=== PATIENT | female | born 1960 | race Caucasian/White ===

== ENCOUNTER 2016-03-13 14:22 | Emergency (ER) | payer OTHER ==
[~2016-03-13] VITALS: Wt 95.0 kg
[~2016-03-13 14:22] MED LIST: ACET500C5 PO; ASP81 PO; BIOT800T PO; BISM-34 PO; CIPR500T4 PO; HYDR-3720 PO; HYDR25TA6 PO; IBUP-1542 PO; IBUP800T25 PO; OMEP40CA6 PO; PHEN-537 PO
[2016-03-13] MEDS ORDERED: KETOROLAC 15 MG INJ IV STA (15:33)
[2016-03-13] MEDS ORDERED: ONDANSETRON 4 MG INJ IV STA (15:33)
[2016-03-13] MEDS ORDERED: SOD CHLORIDE 0.9% 1,000 ML IV STA (15:33)
[2016-03-13 15:46] LABS: ADD UMIC YES; BASOPHILS % 0.4 % (0.0-2.0); EOSINOPHILS # 0.3 10^3/ul (0.0-0.5); EOSINOPHILS % 3.3 % (0.0-7.0); HEMATOCRIT 40.6 % (37.0-47.0); HEMOGLOBIN 13.6 g/dl (12.0-16.0); LYMPHOCYTES # 2.3 10^3/ul (0.8-2.9); LYMPHOCYTES % 25.1 % (15.0-51.0); MEAN CORPUSCULAR HEMOGLOBIN 29.8 pg (29.0-33.0); MEAN CORPUSCULAR HGB CONC 33.4 g/dl (32.0-37.0); MEAN CORPUSCULAR VOLUME 89.2 fl (82.0-101.0); MEAN PLATELET VOLUME 8.3 fl (7.4-10.4); MONOCYTE # 0.5 10^3/ul (0.3-0.9); MONOCYTES % 5.9 % (0.0-11.0); NEUTROPHIL # 5.9 10^3/ul (1.6-7.5); NEUTROPHILS % 65.3 % (39.0-77.0); PLATELET COUNT 276 10^3/UL (140-440); RED BLOOD COUNT 4.55 10^6/ul (4.20-5.40); RED CELL DISTRIBUTION WIDTH 12.9 % (11.5-14.5); URINE BILIRUBIN (Dip) NEGATIVE (NEGATIVE); URINE BLOOD (Dip) NEGATIVE (NEGATIVE); URINE COLOR LT. YELLOW (YELLOW); URINE GLUCOSE (Dip) NEGATIVE (NEGATIVE); URINE KETONES (Dip) NEGATIVE (NEGATIVE); URINE LEUKOCYTE ESTERASE (Dip) TRACE (NEGATIVE); URINE NITRITE (Dip) NEGATIVE (NEGATIVE); URINE TOTAL PROTEIN (Dip) NEGATIVE (NEGATIVE); URINE UROBILINOGEN (Dip) 0.2 E.U./dL (0.1-1.0)
[2016-03-13 15:48] LABS: CONDITION 1
--- NOTE | 2016-03-13 15:54 | RADRPT ---
PROCEDURE: Chest x-ray CLINICAL INDICATION: Abdominal pain TECHNIQUE: Chest single view COMPARISON: None FINDINGS: The heart is normal in size. The pulmonary vessels are normal in caliber. The lungs are clear. Th e costophrenic angles are sharp. The visualized bony thorax is unremarkable. IMPRESSION: No acute cardiopulmonary disease. RPTAT: HH .Carl Stanford MD, Date Time Electronically viewed and signed by .Carl Stanford MD, MD on 03/13/2016 15:54 .W/
[2016-03-13 15:55] LABS: CHLORIDE 103 mmol/L (97-110); POTASSIUM 3.8 mmol/L (3.5-5.1); SODIUM 144 mmol/L (135-144)
[2016-03-13 15:57] LABS: ANION GAP 16 (8-16); BILIRUBIN,INDIRECT 0.4 mg/dl (0-1.1); BILIRUBIN,TOTAL 0.4 mg/dl (0.2-1.3); CARBON DIOXIDE 29 mmol/L (21-31); CREATININE 0.59 mg/dl (0.44-1.00)
[2016-03-13 15:58] LABS: ALANINE AMINOTRANSFERASE 32 IU/L (13-69); ALBUMIN/GLOBULIN RATIO 1.05; ALKALINE PHOSPHATASE 142 IU/L (42-121); ASPARTATE AMINO TRANSFERASE 38 IU/L (15-46); BLOOD UREA NITROGEN 9 mg/dl (7-20); CALCIUM 8.8 mg/dl (8.4-10.2); GLUCOSE 131 mg/dl (70-220); TOTAL PROTEIN 7.8 g/dl (6.1-8.1)
[2016-03-13] MEDS ORDERED: LORAZEPAM 0.5 MG TAB PO ONE (16:00)
[2016-03-13 16:08] LABS: URINE RBCS NONE SEEN /HPF (0)
[2016-03-13 16:09] LABS: BACTERIA,URINE MODERATE; SQUAMOUS EPITHELIAL CELL,UR MODERATE
[2016-03-13 16:13] LABS: TROPONIN-I < 0.012 ng/ml (0.00-0.12)
[2016-03-13] MEDS ORDERED: CEPHALEXIN 500 MG CAP PO ONE (16:30)
[2016-03-13] MEDS ORDERED: CEPH-443 PO (16:34)
[2016-03-13] MEDS ORDERED: IBUP-1542 PO (16:34)
[2016-03-13] MEDS ORDERED: ALPR0.5T PO (16:34)
--- NOTE | 2016-03-13 16:36 | ERD ---
ER Documentation Chief Complaint Date/Time DATE: 03/13/16 TIME: 16:35 Chief Complaint LEFT SIDE WEAKNESS FOR 3 DAYS. WITH NO SPEECH DEFICIT. NO NEURO DEF HPI 55-year-old woman with multiple complaints including right facial paresthesias and full body paresthesias generalized weakness and dizziness, sharp nonexertional nonradiating chest pain. She has had a headache as well global in nature gradual onset. She has had similar episodes in the past. She denies fevers or chills, no abdominal pain, no shortness of breath. She has had no weakness in her arms or legs, no slurred speech, no trauma. ROS All systems reviewed and are negative except as per history of present illness. Medications Home Meds Active Scripts Ibuprofen* (Motrin*) 600 Mg Tab, 600 MG PO Q8 for PAIN AND/OR INFLAMMATION, #30 TAB Prov:BOB BARROSO MD 03/13/16 Alprazolam* (Xanax*) 0.5 Mg Tab, 0.5 MG PO TID for anxie, #12 TAB Prov:BOB BARROSO MD 03/13/16 Cephalexin* (Keflex*) 500 Mg Capsule, 500 MG PO TID for 7 Days, CAP Prov:BOB BARROSO MD 03/13/16 Discontinued Reported Medications Aspirin (Aspirin) 81 Mg Chew, 81 MG PO DAILY, TAB.CHEW 11/07/13 Biotin (Biotin) 800 Mcg Tablet, 500 MCG PO DAILY 11/07/13 Ibuprofen* (Ibuprofen*) 600 Mg Tablet, 600 MG PO BID, TAB 11/07/13 Hydrochlorothiazide (Hydrochlorothiazide) 25 Mg Tablet, 25 MG PO DAILY, TAB 11/07/13 Omeprazole* (Omeprazole*) 40 Mg Capsule.dr, 40 MG PO DAILY, CAP 11/07/13 Discontinued Scripts Bismuth Subsalicylate* (Bismuth Subsalicylate*) 262 Mg/15 Ml Oral.susp, 30 ML PO Q6 Y for DIARRHEA for 5 Days, EA Prov:HAYDEE LOTT PA-C 08/23/15 Ciprofloxacin Hcl* (Ciprofloxacin Hcl*) 500 Mg Tablet, 500 MG PO BID for 7 Days , TAB Prov:HAYDEE LOTT PA-C 08/23/15 Acetaminophen* (Tylophen*) 500 Mg Capsule, 1 CAP PO Q6H Y for PAIN AND OR ELEVATED TEMP, #20 CAP Prov:HAYDEE LOTT PA-C 08/23/15 Ibuprofen* (Motrin*) 600 Mg Tab, 600 MG PO Q6, #20 TAB Prov:HAYDEE LOTT PA-C 16 Acetaminophen* (Tylophen*) 500 Mg Capsule, 2 CAP PO Q8H Y for PAIN AND OR ELEVATED TEMP, #20 CAP Prov:FILIBERTOBART 11/27/14 Phenazopyridine Hcl* (Pyridium*) 100 Mg Tab, 100 MG PO TID, #10 TAB Prov:FILIBERTOBART 11/27/14 Hydrocodone Bit-Acetaminophen* ([place]*) 7.5-325 Tablet, 1 TAB PO Q4H Y for PAIN , #20 TAB Prov:FILIBERTOBART 11/27/14 Ibuprofen* (Motrin*) 800 Mg Tab, 800 MG PO Q6H Y for PAIN AND OR ELEVATED TEMP, #30 TAB Prov:FILIBERTO,BART 11/27/14 Ciprofloxacin Hcl* (Ciprofloxacin Hcl*) 500 Mg Tablet, 500 MG PO BID for 10 Days , TAB Prov:FILIBERTO,BART 11/27/14 Allergies Allergies: Coded Allergies: No Known Allergy (Unverified , 03/13/16) PMhx/Soc Anxiety, hypertension History of Surgery: Yes (SHOULDER SURGERY; UTERINE REMOVAL) Anesthesia Reaction: No Hx Neurological Disorder: No Hx Respiratory Disorders: No Hx Cardiac Disorders: Yes (HTN) Hx Psychiatric Problems: No Hx Miscellaneous Medical Probl: Yes (LIVER PROBLEMS) Hx Alcohol Use: No Hx Substance Use: No Hx Tobacco Use: Yes Smoking Status: Never smoker FmHx Family History: No diabetes Physical Exam Vitals Vital Signs Date Time Temp Pulse Resp B/P Pulse Ox O2 Delivery O2 Flow Rate FiO2 03/13/16 16:46 76 18 126/72 99 Room Air 03/13/16 14:40 98.2 80 20 156/74 98 Physical Exam GENERAL: Well-developed, well-nourished, anxious appearing HEENT: Moist mucous membranes, pink conjunctiva, no cervical spine tenderness or step-off deformities, no goiter, no jaundice or icterus, extraocular movements intact without pain. No submandibular induration, and no pharyngeal erythema NEURO: Alert and oriented 3, cranial nerves II through XII intact bilaterally, pupils equal round reactive to light, no focal deficits or facial asymmetry, sensation intact distally Strength 5/5 in upper and lower extremities bilaterally CARDIAC: Regular rate and rhythm, no murmurs rubs or gallops LUNGS: Clear bilaterally no wheezing crackles or stridor ABDOMEN: Soft nontender, no guarding, no rigidity, no rebound, no psoas sign no obturator sign. Normoactive bowel sounds SKIN: Warm and dry to touch, no abrasions, contusions, or hematomas, no lacerations, no ecchymosis, no target lesions, and without ulcers EXTREMITIES: No clubbing cyanosis or edema, calves are bilaterally symmetrical, no Homans sign, no popliteal cord sign. Distal pulses equal and bilateral PSYCH: Anxious Result Diagram: 03/13/16 1530 03/13/16 1530 Results 24 hrs Laboratory Tests Test 03/13/16 15:30 Alanine Aminotransferase (ALT/SGPT) 32IU/L Albumin 4.0g/dl Albumin/Globulin Ratio 1.05 Alkaline Phosphatase 142IU/L Anion Gap 16 Aspartate Amino Transf (AST/SGOT) 38IU/L Basophils # 0.010^3/ul Basophils % 0.4% Blood Urea Nitrogen 9mg/dl Calcium Level 8.8mg/dl Carbon Dioxide Level 29mmol/L Chloride Level 103mmol/L Creatinine 0.59mg/dl Direct Bilirubin 0.00mg/dl Eosinophils # 0.310^3/ul Eosinophils % 3.3% Globulin 3.80g/dl Glucose Level 131mg/dl Hematocrit 40.6% Hemoglobin 13.6g/dl Indirect Bilirubin 0.4mg/dl Lipase 98U/L Lymphocytes # 2.310^3/ul Lymphocytes % 25.1% Mean Corpuscular Hemoglobin 29.8pg Mean Corpuscular Hemoglobin Concent 33.4g/dl Mean Corpuscular Volume 89.2fl Mean Platelet Volume 8.3fl Monocytes # 0.510^3/ul Monocytes % 5.9% Neutrophils # 5.910^3/ul Neutrophils % 65.3% Nucleated Red Blood Cells # 0.010^3/ul Nucleated Red Blood Cells % 0.0/100WBC Platelet Count 48186^3/UL Potassium Level 3.8mmol/L Red Blood Count 4.5510^6/ul Red Cell Distribution Width 12.9% Sodium Level 144mmol/L Total Bilirubin 0.4mg/dl Total Protein 7.8g/dl Troponin I < 0.012ng/ml Urine Bacteria MODERATE Urine Bilirubin NEGATIVE Urine Clarity SLIGHTLY CLOUDY Urine Color LT. YELLOW Urine Glucose NEGATIVE% Urine Hemoglobin NEGATIVE Urine Ketones NEGATIVE Urine Leukocyte Esterase TRACE Urine Microscopic RBC NONE SEEN/HPF Urine Microscopic WBC 5-10/HPF Urine Nitrite NEGATIVE Urine Specific [place] 1.025 Urine Squamous Epithelial Cells MODERATE Urine Total Protein NEGATIVE Urine Urobilinogen 0.2 E.U./dL Urine pH 6.0 White Blood Count 9.010^3/ul Current Medications Medications (Trade) Dose Ordered Sig/Amberly Route PRN Reason Start Time Stop Time Status Last Admin Dose Admin Sodium Chloride (NS) 1,000 ml @ 1,000 mls/hr Q1H STAT IV 03/13/16 15:33 03/13/16 16:32 DC 03/13/16 15:50 Ondansetron HCl (Zofran Inj) 4 mg ONCE STAT IV 03/13/16 15:33 03/13/16 15:35 DC 03/13/16 15:49 Ketorolac Tromethamine (Toradol) 15 mg ONCE STAT IV 03/13/16 15:33 03/13/16 15:35 DC 03/13/16 15:49 Lorazepam (Ativan) 0.5 mg ONCE ONCE PO 03/13/16 16:00 03/13/16 16:01 DC 03/13/16 15:49 Cephalexin (Keflex) 500 mg ONCE ONCE PO 03/13/16 16:30 03/13/16 16:31 DC 03/13/16 16:20 Procedures/MDM IV line was established patient was placed on surveillance monitor rhythm strip revealed a sinus rhythm at about 70 bpm with upright P and T waves. Patient was afebrile. I administered 1 L normal saline intravenously, Toradol 50 mg IV, Zofran 4 mg IV , lorazepam 0.5 mg p.o. with good response. EKG performed, read by me: 72 bpm, normal sinus rhythm, normal axis, no acute ST segment changes, narrow QRS complex, with good R-wave progression in precordial leads. CBC and electrolytes were normal, liver function tests were normal, troponin was negative. Urine analysis was concerning for early urinary tract infection and given her overall symptoms I elected to treat her here with oral antibiotics and give her a prescription 1 week. Patient received 500 mg cephalexin p.o. 1. Differential diagnoses considered, included but not limited to acute coronary syndrome, pulmonary embolism, aortic dissection, abdominal aortic aneurysm, sepsis, stroke, meningitis, encephalitis, pneumonia, appendicitis, cholecystitis , bowel obstruction, pyelonephritis, nephrolithiasis, cystitis, as well as metabolic, hematologic, and electrolyte abnormalities. As well as abscess, cellulitis, fractures, and dislocations. Patient feels much better at this time, and vital signs are normal, symptoms have improved. I did give strict instructions to return to the ED if symptoms continue or worsen, patient will otherwise follow-up with primary care physician. Patient understood instructions and agreed to plan. Departure Diagnosis: Primary Impression: Paresthesia Additional Impressions: Urinary tract infection Urinary tract infection type: acute cystitis Hematuria presence: without hematuria Qualified Code: N30.00 - Acute cystitis without hematuria Dizziness Anxiety Condition: Good Patient Instructions: Understanding Urinary Tract Infections (UTIs), Dizziness , Unk Cause, Paraesthesias BOB BARROSO MD Mar 13, 2016 16:36
[2016-03-13 16:46] VITALS: BP 126/72; PULSE 76; RESP 18
== END 2016-03-13 16:49 | disposition home or self-care (01) ==
LOC: E/R 14:22
DX: R20.9 Unspecified disturbances of skin sensation (principal); R40.2142 Coma scale, eyes open, spontaneous, at arrival to emergency department; N30.00 Acute cystitis without hematuria; F41.9 Anxiety disorder, unspecified; R40.2252 Coma scale, best verbal response, oriented, at arrival to emergency department; R40.2362 Coma scale, best motor response, obeys commands, at arrival to emergency department; I10 Essential (primary) hypertension; Z79.82 Long term (current) use of aspirin
CPT/HCPCS: 71010; 80053; 81001; 83690; 84484; 85025; 93005; J1885; J2405; J7030; Z7610; 36415; 81003; 96374; 96375

== ENCOUNTER 2016-06-13 17:41 | Emergency (ER) | payer OTHER ==
[~2016-06-13] VITALS: Wt 75.0 kg
[~2016-06-13 17:41] MED LIST changes: -ACET500C5 PO; +ALPR0.5T PO; -ASP81 PO; -BIOT800T PO; -BISM-34 PO; +CEPH-443 PO; -CIPR500T4 PO; -HYDR-3720 PO; -HYDR25TA6 PO; -IBUP800T25 PO; -OMEP40CA6 PO; -PHEN-537 PO
[2016-06-13] MEDS ORDERED: morphine 4 MG/ML VIAL IV STA (20:17)
[2016-06-13] MEDS ORDERED: ONDANSETRON 4 MG INJ IV STA (20:17)
[2016-06-13] MEDS ORDERED: SOD CHLORIDE 0.9% 1,000 ML IV STA (20:17)
[2016-06-13 20:38] LABS: ADD SCAN DIFF NO
[2016-06-13 20:40] LABS: BASOPHIL # 0.1 10^3/ul (0.0-0.1); BASOPHILS % 0.7 % (0.0-2.0); EOSINOPHILS # 0.5 10^3/ul (0.0-0.5); EOSINOPHILS % 4.9 % (0.0-7.0); HEMATOCRIT 39.8 % (37.0-47.0); HEMOGLOBIN 13.2 g/dl (12.0-16.0); LYMPHOCYTES # 1.8 10^3/ul (0.8-2.9); LYMPHOCYTES % 19.1 % (15.0-51.0); MEAN CORPUSCULAR HEMOGLOBIN 30.1 pg (29.0-33.0); MEAN CORPUSCULAR HGB CONC 33.2 g/dl (32.0-37.0); MEAN CORPUSCULAR VOLUME 90.9 fl (82.0-101.0); MEAN PLATELET VOLUME 10.1 fl (7.4-10.4); MONOCYTE # 0.7 10^3/ul (0.3-0.9); MONOCYTES % 7.8 % (0.0-11.0); NEUTROPHIL # 6.1 10^3/ul (1.6-7.5); NEUTROPHILS % 67.2 % (39.0-77.0); PLATELET COUNT 233 10^3/UL (140-415); RED BLOOD COUNT 4.38 10^6/ul (4.20-5.40); RED CELL DISTRIBUTION WIDTH 12.9 % (11.5-14.5); WHITE BLOOD COUNT 9.1 10^3/ul (4.8-10.8)
[2016-06-13 20:42] LABS: ADD UMIC YES; URINE BILIRUBIN (Dip) 1+ (NEGATIVE); URINE BLOOD (Dip) 3+ (NEGATIVE); URINE COLOR RED (YELLOW); URINE GLUCOSE (Dip) NEGATIVE (NEGATIVE); URINE KETONES (Dip) NEGATIVE (NEGATIVE); URINE LEUKOCYTE ESTERASE (Dip) NEGATIVE (NEGATIVE); URINE NITRITE (Dip) NEGATIVE (NEGATIVE); URINE TOTAL PROTEIN (Dip) 2+ (NEGATIVE); URINE UROBILINOGEN (Dip) 0.2 E.U./dL (0.1-1.0)
[2016-06-13 20:49] LABS: CHLORIDE 103 mmol/L (97-110)
[2016-06-13 20:50] LABS: ALBUMIN 4.2 g/dl (3.3-4.9); INR 1.01; PARTIAL THROMBOPLASTIN TIME 28.7 Sec (25.0-35.0); PROTIME 13.3 Sec (12.2-14.2)
[2016-06-13 20:51] LABS: POTASSIUM 3.8 mmol/L (3.5-5.1); SODIUM 140 mmol/L (135-144)
[2016-06-13] MEDS ORDERED: PANT40TA4 PO (20:51)
[2016-06-13] MEDS ORDERED: TRAM-40 PO (20:52)
[2016-06-13] MEDS ORDERED: BUTA1CAP41 PO (20:52)
[2016-06-13 20:53] LABS: ALBUMIN/GLOBULIN RATIO 1.35; ALKALINE PHOSPHATASE 116 IU/L (42-121); AMYLASE 64 U/L (11-123); ANION GAP 15 (8-16); ASPARTATE AMINO TRANSFERASE 35 IU/L (15-46); BILIRUBIN,INDIRECT 0.7 mg/dl (0-1.1); BILIRUBIN,TOTAL 0.7 mg/dl (0.2-1.3); BLOOD UREA NITROGEN 14 mg/dl (7-20); CARBON DIOXIDE 26 mmol/L (21-31); CREATININE 0.69 mg/dl (0.44-1.00); TOTAL PROTEIN 7.3 g/dl (6.1-8.1)
[2016-06-13] MEDS ORDERED: AMO500 PO (20:53)
[2016-06-13 20:54] LABS: ALANINE AMINOTRANSFERASE 38 IU/L (13-69); GLUCOSE 102 mg/dl (70-220)
[2016-06-13 20:55] LABS: ICTOTEST NEGATIVE (NEGATIVE); SQUAMOUS EPITHELIAL CELL,UR OCCASIONAL; URINE RBCS >200 /HPF (0)
[2016-06-13] MEDS ORDERED: DICLOFENAC SODIUM 37.5 MG/ML VIAL IV STA (21:08)
[2016-06-13 21:14] LABS: TROPONIN-I < 0.012 ng/ml (0.00-0.12)
[2016-06-13] MEDS ORDERED: CEFTRIAXONE 1 GM/50 ML (PMX) 50 ML IVPB ONE (21:30)
--- NOTE | 2016-06-13 21:31 | ERD ---
ER Documentation Chief Complaint Date/Time DATE: 06/13/16 TIME: 21:27 Chief Complaint LEFT SIDED FLANK PAIN X 3 DAYS WITH DYSURIA (BART DE LOS SANTOS) HPI This is a very pleasant 55-year-old Trinidadian-speaking female with no past medical history that presents to the emergency department complaining of left flank pain for the past 3 days. The patient indicates that the pain is intermittent but progressively worsened just prior to arrival to 10 out of 10 in intensity and began to radiate to her left lower quadrant. She has been experiencing dysuria frequency and urgency with gross hematuria. Had any similar symptoms in the past. She denies any fever shaking or chills. She has no shortness of breath at rest or exertion. She denies any hemoptysis hematemesis or melanotic stools. She denies any recent travel. She did not take any analgesic medication prior to arrival. She denies any recent remote blunt or penetrating abdominal wall trauma. She has no chest pain or pressure that radiates to the neck arm back or jaw. (BART DE LOS SANTOS) ROS All systems reviewed and are negative except as per history of present illness. (BART DE LOS SANTOS) Medications Home Meds Active Scripts Polyethylene Glycol* (Miralax*) 17 Gm Powd.pack, 17 GM PO DAILY, #7 Prov:TATE HITCHCOCK DO 06/13/16 Hydrocodone/Acetaminophen (Sandwich 5-325 Tablet) 1 Each Tablet, 1 EACH PO Q6 Y for PAIN LEVEL 7-10, #10 TAB Prov:BART DE LOS SANTOS 06/13/16 Ibuprofen* (Ibuprofen*) 800 Mg Tablet, 800 MG PO Q8, #20 TAB Prov:BART DE LOS SANTOS 06/13/16 Cephalexin* (Keflex*) 500 Mg Capsule, 500 MG PO QID for 7 Days, CAP Prov:BART DE LOS SANTOS 06/13/16 Alprazolam* (Xanax*) 0.5 Mg Tab, 0.5 MG PO TID for anxie, #12 TAB Prov:BOB BARROSO MD 03/13/16 Reported Medications Amoxicillin* (Amoxicillin*) 500 Mg Cap, 500 MG PO DAILY, #20 CAP 06/13/16 Tramadol Hcl* (Ultram*) 50 Mg Tablet, 50 MG PO Q6H Y for PAIN, TAB 06/13/16 Gsjhhhxirm-Gokelxpgltwuk-Obhrrxia* (Zebutal*) 50-325-40 Mg Capsule, 1 CAP PO Q6H , CAP 06/13/16 Pantoprazole* (Pantoprazole*) 40 Mg Tablet.dr, 40 MG PO AC BREAKFAST, TAB 06/13/16 Discontinued Scripts Ibuprofen* (Motrin*) 600 Mg Tab, 600 MG PO Q8 for PAIN AND/OR INFLAMMATION, #30 TAB Prov:BOB BARROSO MD 03/13/16 Cephalexin* (Keflex*) 500 Mg Capsule, 500 MG PO TID for 7 Days, CAP Prov:BOB BARROSO MD 03/13/16 Allergies Allergies: Coded Allergies: No Known Allergy (Unverified , 06/13/16) PMhx/Soc History of Surgery: Yes (SHOULDER SURGERY; UTERINE REMOVAL) Anesthesia Reaction: No Hx Neurological Disorder: No Hx Respiratory Disorders: No Hx Cardiac Disorders: Yes (HTN) Hx Psychiatric Problems: No Hx Miscellaneous Medical Probl: Yes (LIVER PROBLEMS) Hx Alcohol Use: No Hx Substance Use: No Hx Tobacco Use: Yes (BART DE LOS SANTOS) Physical Exam Vitals Vital Signs Date Time Temp Pulse Resp B/P Pulse Ox O2 Delivery O2 Flow Rate FiO2 06/13/16 22:50 97.6 74 20 155/82 98 Room Air 06/13/16 20:30 97.8 85 18 157/89 97 Room Air 06/13/16 17:45 98.0 785 18 141/65 99 (GREEN,TATE DO) Physical Exam Constitutional:Well-developed. Well-nourished. Patient appeared to be in a significant amount discomfort unable to find a comfortable position on the stretcher. HEENT:Normocephalic. Atraumatic.Pupils were equal round reactive to light. Moist mucous membranes.No tonsillar exudates. Neck: No nuchal rigidity. No lymphadenopathy. No posterior cervical spine tenderness or step-offs. Respiratory: Not using accessory muscles of respiration.Lungs were clear to auscultation bilaterally. No rhonchi. No rales. No wheezing. Cardiovascular: Regular rate regular rhythm.No murmurs. No rubs were appreciated.S1, S2 normal. Distal pulses are palpable 2+ bilaterally. GI: Abdomen was soft. Left CVA tenderness. Non Distended. No pulsatile abdominal masses or bruits. No rebound. No guarding. Bowel sounds were present and normal. Muscle skeletal: Full range of motion of both the upper and lower extremities bilaterally.Normal muscle tone.No assymetrical calf tenderness or swelling. Skin: No petechia, no purpura. No lesions on the palms or the soles of the feet. No maculopapular rash. NEURO: Patient was alert, awake, orientated x3.No facial droop. Gait observed and normal with no ataxia.Speech had regular rate and rhythm. No focal neurological deficits. (BART DE LOS SANTOS) Result Diagram: 06/13/16202406/13/162024 Results 24 hrs Laboratory Tests Test 06/13/16 20:25 White Blood Count 9.110^3/ul Red Blood Count 4.3810^6/ul Hemoglobin 13.2g/dl Hematocrit 39.8% Mean Corpuscular Volume 90.9fl Mean Corpuscular Hemoglobin 30.1pg Mean Corpuscular Hemoglobin Concent 33.2g/dl Red Cell Distribution Width 12.9% Platelet Count 57611^3/UL Mean Platelet Volume 10.1fl Neutrophils % 67.2% Lymphocytes % 19.1% Monocytes % 7.8% Eosinophils % 4.9% Basophils % 0.7% Nucleated Red Blood Cells % 0.0/100WBC Neutrophils # 6.110^3/ul Lymphocytes # 1.810^3/ul Monocytes # 0.710^3/ul Eosinophils # 0.510^3/ul Basophils # 0.110^3/ul Nucleated Red Blood Cells # 0.010^3/ul Prothrombin Time 13.3Sec Prothrombin Time Ratio 1.0 INR International Normalized Ratio 1.01 Activated Partial Thromboplast Time 28.7Sec Urine Color RED Urine Clarity TURBID Urine pH 6.0 Urine Specific [place] 1.020 Urine Ketones NEGATIVE Urine Nitrite NEGATIVE Urine Bilirubin 1+ Urine Ictotest NEGATIVE Urine Urobilinogen 0.2 E.U./dL Urine Leukocyte Esterase NEGATIVE Urine Microscopic RBC >200/HPF Urine Microscopic WBC 5-10/HPF Urine Squamous Epithelial Cells OCCASIONAL Urine Hemoglobin 3+ Urine Glucose NEGATIVE% Urine Total Protein 2+ Sodium Level 140mmol/L Potassium Level 3.8mmol/L Chloride Level 103mmol/L Carbon Dioxide Level 26mmol/L Anion Gap 15 Blood Urea Nitrogen 14mg/dl Creatinine 0.69mg/dl Glucose Level 102mg/dl Calcium Level 9.0mg/dl Total Bilirubin 0.7mg/dl Direct Bilirubin 0.00mg/dl Indirect Bilirubin 0.7mg/dl Aspartate Amino Transf (AST/SGOT) 35IU/L Alanine Aminotransferase (ALT/SGPT) 38IU/L Alkaline Phosphatase 116IU/L Troponin I < 0.012ng/ml Total Protein 7.3g/dl Albumin 4.2g/dl Globulin 3.10g/dl Albumin/Globulin Ratio 1.35 Amylase Level 64U/L Lipase 183U/L Current Medications Medications (Trade) Dose Ordered Sig/Amberly Route PRN Reason Start Time Stop Time Status Last Admin Dose Admin Sodium Chloride (NS) 1,000 ml @ 1,000 mls/hr Q1H STAT IV 06/13/16 20:17 06/13/16 21:16 DC 06/13/16 20:32 Morphine Sulfate (morphine) 4 mg ONCE STAT IV 06/13/16 20:17 06/13/16 20:19 DC 06/13/16 20:32 Ondansetron HCl (Zofran Inj) 4 mg ONCE STAT IV 06/13/16 20:17 06/13/16 20:19 DC 06/13/16 20:32 Diclofenac Sodium 37.5 mg 37.5 mg ONCE STAT IV 06/13/16 21:08 06/13/16 21:14 DC 06/13/16 21:38 Ceftriaxone Sodium (Rocephin) 50 ml @ 100 mls/hr ONCE ONCE IVPB 06/13/16 21:30 06/13/16 21:59 DC 06/13/16 21:38 (TATE HITCHCOCK DO) Procedures/MDM This patient presented to the emergency department with abdominal pain and was seen and evaluated by myself. My differential diagnosis included but was not limited to abdominal aortic aneurysm, appendicitis, pancreatitis, perforated peptic ulcer, perforated viscus, Boerhaaves syndrome or visceral pain such as diverticulitis, DKA, esophagitis, hepatitis or bowel obstruction. The patient was placed on a lunchroom monitor, continuous pulse oximetry, and IV access was established by nursing staff. The patient was given intravenous morphine dilator checked and Zofran. I obtained a 12-lead EKG tracing to rule out atypical myocardial infarction. 12 Lead EKG tracing ordered and reviewed by myself showed: Normal sinus rhythm of 77 bpm and no arrhythmia. HI interval normal. QRS duration normal. No ST segment elevation No ST segment depression. No changes consistent with acute ischemia. The patient had gross hematuria with a mild amount of pyuria. Therefore the patient was given IV ceftriaxone after urine culture had been obtained. I obtained a CT scan without contrast that did confirm left-sided nephrolithiasis with no evidence of obstructive uropathy. The patient's pain had completely resolved and she did feel comfortable being discharged home. She is given outpatient follow-up with a urologist and discharged home with analgesic pain medication which included Motrin and Sandwich for breakthrough pain with a prescription of Keflex for her mild cystitis The patient was discharged home in fair condition. They were instructed to return to the emergency department at any time if there was any worsening of their condition. The patient stated they would follow up with their PCP in the next 24-48 hours to initiate a suitable medication regimen under the care of their PCP as well as to allow their PCP to monitor any drug reactions. The patient was discharged home with prescriptions after they gave informed consent to the new medication. They were also fully informed by myself on the adverse effects and adverse drug interactions in order to provide adequate safeguards to prevent possible adverse reactions to medications. (BART DE LOS SANTOS) Was signed out the pending CT read on this patient. She has a kidney stone is suspected the stone is 7 x 4 x 3 and is ready passed to the distal ureter with mild hydronephrosis. Also noted on CT is constipation. I am adding MiraLAX to her medication regimen for discharge and printing CAT scan for her instructing her to follow-up with urologist through her primary care doctor.. (TATE HITCHCOCK DO) Departure Diagnosis: Primary Impression: Nephrolithiasis Additional Impression: Urinary tract infection Urinary tract infection type: acute cystitis Hematuria presence: with hematuria Qualified Code: N30.01 - Acute cystitis with hematuria Condition: Fair BART DE LOS SANTOS Jun 13, 2016 21:31 TATE HITCHCOCK DO Jun 13, 2016 23:41
[2016-06-13] MEDS ORDERED: IBUP800T25 PO (21:34)
[2016-06-13] MEDS ORDERED: HYDR-906 PO (21:34)
[2016-06-13] MEDS ORDERED: CEPH-443 PO (21:34)
--- NOTE | 2016-06-13 22:18 | RADRPT ---
PROCEDURE: CT ABDOMEN/PELVIS WITHOUT CONTRAST CLINICAL INDICATION: 55-year-old female with abdominal and left-sided flank pain. TECHNIQUE: The study was performed utilizing a GE [employer] Wrightpeed VCT 64-slice CT scanner. Direct axia l sections were obtained through the abdomen and pelvis without the use of intravenous contrast mate rial. Sagittal and coronal reformations were obtained. One or more of the following dose reduction t echniques were utilized: automated exposure control, adjustment of the mA and/or kV according to pat ient's size or use of iterative reconstruction technique. The images were reviewed on a PACS workst at[employer]. CTD/vol = 21.1 mGy; Total Exam DLP = 1256.4 mGy-cm. COMPARISON: CT abdomen/pelvis November 27, 2014. FINDINGS: There is minimal bibasilar subsegmental atelectasis. There is no evidence for significant pleural e ffusion. The liver has a normal size and contour without focal areas of abnormal density. No intrah epatic nor extrahepatic biliary ductal dilatation is seen. The gallbladder demonstrates no wall thic kening nor pericholecystic fluid. No biliary stones are evident. The pancreas is without areas of ab normal attenuation. The spleen is identified and has a normal size without abnormal density. The ad renal glands are unremarkable. There is a nonobstructing calculus within the right lower pole measur ing approximately 2 x 2 mm. There is mild left-sided hydroureteronephrosis with an obstructing calc ulus in the distal left ureter measuring approximately 7 x 4 x 3 mm. The urinary bladder contains u rine. There is mild retained stool within the ascending colon without obstruction. The appendix is visualized and is without abnormal thickening or surrounding inflammatory reaction. The uterus is not visualized consistent with prior hysterectomy. There is no significant pelvic free fluid. The aortoiliac vessels are without aneurysmal dilatation. Mild degenerative changes are seen within the spine. IMPRESSION: 1. Mild left-sided hydroureteronephrosis with an obstructing distal left ureteral 7 x 4 x 3 mm calc ulus. 2. Punctate nonobstructing right lower pole 2 x 2 mm calculus. 3. Mild retained stool within the ascending colon. 4. No CT evidence for appendicitis. 5. Status post hysterectomy. 6. Mild degenerative changes within the spine. .Uvaldo Quinn MD, MD Date Time Electronically viewed and signed by .Uvaldo Quinn MD, MD on 06/13/2016 22:17 .M/
[2016-06-13 22:50] VITALS: BP 155/82; PULSE 74; RESP 20; TEMP 97.6
[2016-06-13] MEDS ORDERED: POLY17PO6 PO (23:39)
== END 2016-06-13 23:57 | disposition home or self-care (01) ==
LOC: E/R 17:41
DX: N20.0 Calculus of kidney (principal); N30.01 Acute cystitis with hematuria; I10 Essential (primary) hypertension; F17.210 Nicotine dependence, cigarettes, uncomplicated
CPT/HCPCS: 74176; 80053; 81001; 82150; 83690; 84484; 85025; 85610; 85730; 87086; 93005; 96374; 96375; J0696; J2270; J2405; J7030; Z7502; Z7610; 81003

== ENCOUNTER 2016-06-15 01:33 | Emergency (ER) | payer OTHER ==
[~2016-06-15] VITALS: Ht 165.1 cm; Wt 95.0 kg
[~2016-06-15 01:33] MED LIST changes: +AMO500 PO; +BUTA1CAP41 PO; +HYDR-906 PO; -IBUP-1542 PO; +IBUP800T25 PO; +PANT40TA4 PO; +POLY17PO6 PO; +TRAM-40 PO
[2016-06-15 01:48] VITALS: Ht 165.1 cm; Wt 95.0 kg
[2016-06-15] MEDS ORDERED: KETOROLAC 60 MG INJ IM STA (02:43)
[2016-06-15] MEDS ORDERED: ONDANSETRON (ODT) 4 MG TAB ODT STA (02:43)
[2016-06-15] MEDS ORDERED: HYDROCODONE/APAP (10/325) TAB PO ONE (03:00)
[2016-06-15] MEDS ORDERED: PHENAZOPYRIDINE 100 MG TAB PO ONE (03:00)
[2016-06-15 03:03] LABS: URINE BLOOD (Dip) POC 2+ (NEGATIVE)
--- NOTE | 2016-06-15 03:23 | ERD ---
ER Documentation Chief Complaint Date/Time DATE: 06/15/16 TIME: 03:19 Chief Complaint left flank pain radiating to front lower pelvis x 3 days, +hematuria, dysur HPI 55-year-old female presents here in emergency department for quite of left flank pain radiating to the left pelvis, and hematuria, patient has seen in the emergency department yesterday, was diagnosed of kidney stones her laboratory testing and CT scan, patient also mild hydroureteronephrosis with this, patient was not able to fill prescription for pain medications and that she is here today, patient wants relief of pain. Patient denies any new symptoms. Patient denies any fever or chills. Patient denies any nausea or vomiting. Patient described the pain sharp pain, 8/10 scale, not better with anything, worst upon urination. Patient was given prescriptions yesterday and was not able to fill it them. ROS All systems reviewed and are negative except as per history of present illness. Medications Home Meds Active Scripts Polyethylene Glycol* (Miralax*) 17 Gm Powd.pack, 17 GM PO DAILY, #7 Prov:TATE HITCHCOCK DO 06/13/16 Hydrocodone/Acetaminophen ([place] 5-325 Tablet) 1 Each Tablet, 1 EACH PO Q6 Y for PAIN LEVEL 7-10, #10 TAB Prov:BART DE LOS SANTOS 06/13/16 Ibuprofen* (Ibuprofen*) 800 Mg Tablet, 800 MG PO Q8, #20 TAB Prov:BART DE LOS SANTOS 06/13/16 Cephalexin* (Keflex*) 500 Mg Capsule, 500 MG PO QID for 7 Days, CAP Prov:BART DE LOS SANTOS 06/13/16 Alprazolam* (Xanax*) 0.5 Mg Tab, 0.5 MG PO TID for anxie, #12 TAB Prov:BOB BARROSO MD 03/13/16 Reported Medications Amoxicillin* (Amoxicillin*) 500 Mg Cap, 500 MG PO DAILY, #20 CAP 06/13/16 Tramadol Hcl* (Ultram*) 50 Mg Tablet, 50 MG PO Q6H Y for PAIN, TAB 06/13/16 Mamhnmkpkx-Exdyaqmirqnml-Quspmcuf* (Zebutal*) 50-325-40 Mg Capsule, 1 CAP PO Q6H , CAP 06/13/16 Pantoprazole* (Pantoprazole*) 40 Mg Tablet.dr, 40 MG PO AC BREAKFAST, TAB 06/13/16 Discontinued Scripts Ibuprofen* (Motrin*) 600 Mg Tab, 600 MG PO Q8 for PAIN AND/OR INFLAMMATION, #30 TAB Prov:BOB BARROSO MD 03/13/16 Cephalexin* (Keflex*) 500 Mg Capsule, 500 MG PO TID for 7 Days, CAP Prov:BOB BARROSO MD 03/13/16 Allergies Allergies: Coded Allergies: No Known Allergy (Unverified , 06/13/16) PMhx/Soc History of Surgery: Yes (SHOULDER SURGERY; UTERINE REMOVAL) Anesthesia Reaction: No Hx Neurological Disorder: No Hx Respiratory Disorders: No Hx Cardiac Disorders: Yes (HTN) Hx Psychiatric Problems: No Hx Miscellaneous Medical Probl: Yes (LIVER PROBLEMS, kidney stones in past) Hx Alcohol Use: No Hx Substance Use: No Hx Tobacco Use: Yes Smoking Status: Current every day smoker FmHx Family History: No coronary disease, No diabetes, No other Physical Exam Vitals Vital Signs Date Time Temp Pulse Resp B/P Pulse Ox O2 Delivery O2 Flow Rate FiO2 06/15/16 01:48 97.3 78 20 173/84 97 Physical Exam GENERAL: The patient is well developed and appropriate for usual state of health, in no apparent distress. CHEST: Clear to auscultation bilaterally. There are no rales, wheezes or rhonchi. HEART: Regular rate and rhythm. No murmurs, clicks, rubs or gallops. No S3 or S4. ABDOMEN: Soft, nontender and nondistended. Good bowel sounds. No rebound or guarding. No gross peritonitis. No gross organomegaly or masses. No Villa sign or McBurney point tenderness. BACK: No midline or flank tenderness. Left CVA tenderness. EXTREMITIES: Equal pulses bilaterally. There is no peripheral clubbing, cyanosis or edema. No focal swelling or erythema. Full range of motion. Grossly neurovascularly intact. NEURO: Alert and oriented. Cranial nerves 2-12 intact. Motor strength in all 4 extremities with 5/5 strength. Sensation grossly intact. Normal speech and gait. SKIN: There is no apparent rash or petechia. The skin is warm and dry. HEMATOLOGIC AND LYMPHATIC: There is no evidence of excessive bruising or lymphedema. No gross cervical, axillary, or inguinal lymphadenopathy. Results 24 hrs Laboratory Tests Test 06/15/16 03:04 Bedside Urine pH (LAB) 6.0 Bedside Urine Protein (LAB) Negative Bedside Urine Glucose (UA) Negative Bedside Urine Ketones (LAB) Negative Bedside Urine Blood 2+ Bedside Urine Nitrite (LAB) Negative Bedside Urine Leukocyte Esterase (L Trace Current Medications Medications (Trade) Dose Ordered Sig/Amberly Route PRN Reason Start Time Stop Time Status Last Admin Dose Admin Ketorolac Tromethamine (Toradol) 60 mg ONCE STAT IM 06/15/16 02:43 06/15/16 02:45 DC 06/15/16 02:59 Phenazopyridine HCl (Pyridium) 200 mg ONCE ONCE PO 06/15/16 03:00 06/15/16 03:01 DC 06/15/16 02:59 Acetaminophen/ Hydrocodone Bitart ([place] (10/325)) 1 tab ONCE ONCE PO 06/15/16 03:00 06/15/16 03:01 DC 06/15/16 02:59 Ondansetron HCl (Zofran Odt) 4 mg ONCE STAT ODT 06/15/16 02:43 06/15/16 02:45 DC 06/15/16 02:59 Patient was given medication for pain here in emergency department, after treatment, patient verbalized feeling much better. Patient's pain is improved.Patient was given Zofran here in the emergency department. After treatment, patient was able to tolerate po fluids here in the emergency department without any vomiting. There is no signs and symptoms of dehydration. Procedures/MDM Medical Decision Making: Patient's symptoms suspect is consistent with renal colic, patient was unable to fill prescriptions given to her and that is why she continues to have the pain. Urine dipstick was then again, was negative for any leukocytes or any infection, +3 hematuria consistent with a kidney sounds. There is low suspicion for abdominal emergencies at this time. Patients abdominal exam is normal at this time. CT scan of abdomen and pelvis was already done yesterday, repeat of this testing is not indicated at this time currently repeat laboratory testing is necessary. There is low suspicion for appendicitis, cholecystitis, abdominal aortic aneurysms or peritonitis at this time. There is low suspicion for sepsis. Patient appears well and is hemodynamically stable. Disposition: Home. Condition: Stable Prescription. DM, tamsulosin, continue other medications given Instructions: Patient is advised to take medications as prescribed. Patient is advised to rest, increase fluid intake and do brat diet for next 1-2 days and progress as tolerated. Patient is advised that if symptoms are worse, severe abdominal pain, uncontrolled vomiting, high fever, severe flank pain, worst signs and symptoms, to return to the emergency department immediately. Otherwise, patient can follow up with primary care doctor in 5-7 days. Departure Diagnosis: Primary Impression: Renal colic on left side Condition: Stable Patient Instructions: Kidney Stone W/ Colic Additional Instructions: : Patient is advised to take medications as prescribed. Patient is advised to rest, increase fluid intake and do brat diet for next 1-2 days and progress as tolerated. Patient is advised that if symptoms are worse, severe abdominal pain , uncontrolled vomiting, high fever, severe flank pain, worst signs and symptoms , to return to the emergency department immediately. Otherwise, patient can follow up with primary care doctor in 5-7 days. SAIRA ROBERT NP Jun 15, 2016 03:23
[2016-06-15] MEDS ORDERED: TAMS0.4C2 PO (03:24)
[2016-06-15] MEDS ORDERED: PHEN-538 PO (03:24)
[2016-06-15 03:34] VITALS: BP 150/72; PULSE 70; RESP 18; TEMP 97.6
== END 2016-06-15 03:35 | disposition home or self-care (01) ==
LOC: FTE 01:33
DX: N23 Unspecified renal colic (principal); I10 Essential (primary) hypertension; F17.210 Nicotine dependence, cigarettes, uncomplicated
CPT/HCPCS: 81003; 96372; J1885; Z7502; Z7610